=== PATIENT | male | born 1995 | race Two or more races ===

== ENCOUNTER 2023-05-08 01:16 | Emergency (ER) | payer MEDICAID, OTHER ==
[~2023-05-08] VITALS: Ht 167.6 cm; Wt 72.6 kg
[2023-05-08 01:44] VITALS: BP 153/90; TEMP 98; O2SAT 99
== END 2023-05-08 01:45 | disposition home or self-care (01) ==
LOC: ER 01:19
DX: K64.8 Other hemorrhoids (principal); F32.A Depression, unspecified